=== PATIENT | female | born 1945 | race Caucasian/White ===

== ENCOUNTER 2020-05-20 13:31 | Emergency (ER) | payer OTHER ==
[~2020-05-20] VITALS: Ht 165.1 cm; Wt 76.2 kg
[2020-05-20 14:34] VITALS: Ht 165.1 cm; Wt 76.2 kg
[2020-05-20 18:35] LABS: BASOPHIL % 0.2 % (0-2); PLATELET COUNT 207 x10^3mcL (130-400); RED CELL DISTRIBUTION WIDTH 13.1 % (11.5-14.5)
[2020-05-20 19:39] VITALS: BP 154/74
== END 2020-05-20 19:39 | disposition home or self-care (01) ==
LOC: ED 13:31
PROVIDERS: Emergency Medicine
DX: R04.0 Epistaxis (principal); H92.03 Otalgia, bilateral; I10 Essential (primary) hypertension